=== PATIENT | female | born 1945 | race Caucasian/White ===

== ENCOUNTER 2017-03-22 21:11 | Emergency (ER) | payer OTHER ==
[~2017-03-22] VITALS: Ht 152.4 cm; Wt 75.5 kg
[2017-03-22] MEDS ORDERED: ACETAMINOPHEN 500 MG TAB PO STA (21:24)
[2017-03-22 21:36] VITALS: Ht 152.4 cm; Wt 75.5 kg
--- NOTE | 2017-03-22 21:50 | RADRPT ---
PROCEDURE: XR Chest. CLINICAL INDICATION: Trauma. Pain.. TECHNIQUE: Single frontal chest x-ray. COMPARISON: None. FINDINGS: Heart is mildly enlarged.. There is no congestive heart failure.. No focal infiltrate is seen. The re is no pleural effusion. There is no pneumothorax. Bones are osteopenic.. IMPRESSION: No acute post-traumatic abnormality. Cardiomegaly. RPTAT: HMVK .Eddie Stroud MD, MD Date Time Electronically viewed and signed by .Eddie Stroud MD, on 03/22/2017 21:49 .K/
--- NOTE | 2017-03-22 22:12 | RADRPT ---
AMENDMENT: 04/02/2017 11:18:48 PM Nikole Alcantar M.D One or more of the following dose reduction techniques were used: - Automated exposure control. - Adjustment of the mA and/or kV according to patient size. - Use of iterative reconstruction technique. Sagittal and coronal reformations were constructed. PROCEDURE: CT HEAD WITHOUT CONTRAST: CLINICAL INDICATION: 71 years of age, female, trauma . COMPARISON: None available. TECHNIQUE: CT of the head was performed without IV contrast. Sagittal and coronal reformations were constructed. Dose information: The estimated radiation dose (CTDI vol mGy) for each series in this exam is 41.7 . The estimated cumulative dose (DLP mGy-cm) is 630 . FINDINGS: Parenchyma: No acute intracranial hemorrhage, mass effect or significant midline shift. Mabry-white m atter differentiation is maintained. Mild diffuse cerebral tissue loss. Mild intracranial atheroscl erosis involving the cavernous carotid arteries. Ventricles and extra-axial spaces: Prominence of the ventricles proportionate to the sulci in keepin g with mild cerebral tissue loss that is appropriate for age. Visualized paranasal sinuses: Mild frothy mucus in right greater than left sphenoid sinuses. Mastoid air cells: Clear. Bones: Mild hyperostosis frontalis interna. Additional comment: None. IMPRESSION: 1. Negative for evidence of acute intracranial injury. Negative for evidence of acute intracranial hemorrhage or mass effect. 2. Mild intracranial atherosclerosis. RPTAT: HCTS Physician Sherley Date Time Electronically viewed and signed by Physician Sherley on 04/02/2017 23:19 /
--- NOTE | 2017-03-22 22:13 | RADRPT ---
PROCEDURE: XR Wrist and Scaphoid. CLINICAL INDICATION: 71 years of age, female. Trauma. TECHNIQUE: Four views of the left wrist and scaphoid. COMPARISON: None available. FINDINGS: Negative for evidence of acute fracture or dislocation. Normal alignment. Mild osteopenia. Osteoarthritis first CMC joint. Joint spaces are otherwise preserved. Negative for significant soft tissue swelling. IMPRESSION: 1. Negative for evidence of acute fracture or dislocation of the left wrist. 2. Please note that scaphoid fractures may be occult on initial radiographs. If there is snuffbox t enderness and clinical concern for a scaphoid fracture, recommend treatment and followup radiographs in 7-10 days. RPTAT: HCTS Physician Sherley Date Time Electronically viewed and signed by Physician Sherley on 03/22/2017 22:13 CS/
--- NOTE | 2017-03-22 22:16 | RADRPT ---
PROCEDURE: XR Hand. CLINICAL INDICATION: 71-year of age, female. Fall. TECHNIQUE: Three views of the right hand. COMPARISON: None available. FINDINGS: Negative for evidence of acute fracture. Please note that evaluation of the digits is limited on th e lateral view due to superimposition. Normal alignment. There is osteoarthritis of the CMC joint of the thumb and of the interphalangeal joint of the thumb and DIP of the 2nd finger. Joint spaces are otherwise preserved. There is a subchondral lucency in the proximal lunate that may represent an osteochondral lesion or geode. Negative for significant soft tissue swelling. IMPRESSION: Negative for evidence of acute fracture or dislocation of the right hand. Mild osteoarthritis as described. Lucency in proximal lunate likely represents a geode related to a rthritis or remote trauma. RPTAT: HCTS Physician Sherley Date Time Electronically viewed and signed by Physician Sherley on 03/22/2017 22:16 /
--- NOTE | 2017-03-22 22:23 | RADRPT ---
AMENDMENT: 04/03/2017 12:05:10 AM Nikole Alcantar M.D One or more of the following dose reduction techniques were used: - Automated exposure control. - Adjustment of the mA and/or kV according to patient size. - Use of iterative reconstruction technique. PROCEDURE: CT CERVICAL SPINE WITHOUT CONTRAST CLINICAL INDICATION: 71 years of age, female. Trauma. TECHNIQUE: A CT of the cervical spine was performed utilizing thin section axial images from the s [facility] base through the thoracic inlet. Sagittal and coronal reformatted images were made. The CTDI vol is 22.1 mGy and the DLP is 393 mGy-cm. COMPARISON: No prior studies are available for comparison. FINDINGS: Cervical spine is imaged from the skull base to T1 Alignment: Straightening of the normal cervical lordosis. Negative for subluxation. Vertebrae: Vertebral bodies and posterior elements are intact without acute fracture. Advanced right facet joint arthritis at C4-5. There is mild degenerative disk disease in lower cerv ical spine. Extra-vertebral soft tissues: Normal. Additional comment: None. IMPRESSION: Negative for evidence of acute fracture or traumatic subluxation of cervical spine. Advanced right facet joint arthritis at C4-5. Mild degenerative disk disease. RPTAT: HCTS Physician Sherley Date Time Electronically viewed and signed by Physician Sherley on 04/03/2017 00:06 /
[2017-03-22] MEDS ORDERED: ACET500C5 PO (23:07)
[2017-03-22 23:15] VITALS: BP 138/60; PULSE 72; RESP 18; TEMP 98
--- NOTE | 2017-03-22 23:16 | ERD ---
ER Documentation Chief Complaint Date/Time DATE: 03/22/17 TIME: 23:12 Chief Complaint BIBA [id number] c/o right shoulder,bilat wrist pain r/t fall HPI Very pleasant 71-year-old Tam[place]-speaking female. An mail teller was used. The patient presents with multiple complaints status post ground-level fall just prior to arrival. No prodrome of chest pain or shortness of breath. She describes paraspinal cervical neck pain, no significant head pain or loss of consciousness. Patient also describes mild abrasion just inferior to the left clavicle. She describes left wrist pain and right hand pain that is moderate throbbing and worse with movement. ROS All systems reviewed and are negative except as per history of present illness. Medications Home Meds Active Scripts Acetaminophen* (Tylophen*) 500 Mg Capsule, 2 CAP PO Q8H Y for PAIN AND OR ELEVATED TEMP, #20 CAP Prov:CHA FIGUEREDO MD 03/22/17 Allergies Allergies: Coded Allergies: No Known Allergy (Unverified , 03/22/17) PMhx/Soc History of Surgery: Yes (Laser Surgery for Kidney Stones) Anesthesia Reaction: No Hx Neurological Disorder: No Hx Respiratory Disorders: No Hx Cardiac Disorders: Yes (HTN) Hx Psychiatric Problems: No Hx Miscellaneous Medical Probl: Yes (DM) Hx Alcohol Use: No Hx Substance Use: No Hx Tobacco Use: No Smoking Status: Never smoker FmHx Family History: No diabetes Physical Exam Vitals Vital Signs Date Time Temp Pulse Resp B/P Pulse Ox O2 Delivery O2 Flow Rate FiO2 03/22/17 21:36 98.1 60 18 132/62 97 Physical Exam Airway is intact Bilateral breath sounds Strong distal pulses No obvious deficits General: Well developed, well nourished, no acute distress Head: Normocephalic, atraumatic Eyes: Pupils equally reactive, EOM intact ENT: Moist mucous membranes Neck: Supple, no lymphadenopathy, No midline tenderness, deformities, step-offs to the cervical spine, full active and passive range of motion without midline pain. Respiratory: Lungs clear bilaterally, no distress, no chest wall tenderness, no crepitus Cardiovascular: RRR, no murmurs, rubs, or gallops Abdominal: Soft, non-tender, non-distended, no peritoneal signs, pelvis is stable : Deferred MSK: Contusion noted to left wrist without snuffbox tenderness, normal pronation and supination. No bony abnormalities. 2+ radial ulnar pulses. 5 out of 5 hand grasp strength. Contusion noted to the thenar eminence of the right hand with positive snuffbox tenderness. No tenderness to the distal radius or ulna, 5 out of 5 hand grasp strength. Small abrasion and contusion noted to the left chest wall just under the left clavicle. No focal clavicle deformities or step-offs Neurologic: Alert and oriented, moving all extremities, normal speech, no focal weakness, no cerebellar signs Skin: No ecchymoses or bruising to the chest or abdomen Psych: Normal mood Results 24 hrs Current Medications Medications (Trade) Dose Ordered Sig/Mis Route PRN Reason Start Time Stop Time Status Last Admin Dose Admin Acetaminophen (Tylenol Tab) 1,000 mg ONCE STAT PO 03/22/17 21:24 03/22/17 21:25 DC 03/22/17 21:31 Procedures/MDM EKG, MONITORS, & DIAGNOSTIC IMAGING: CT brain: No evidence of acute intracranial process per radiologist CT cervical spine: No evidence of acute fracture dislocation per radiologist Chest x-ray: I reviewed and interpreted a 1 view of the chest Mediastinum: No enlargement Cardiac silhouette: No cardiomegaly Airspace: Clear lung neal bilaterally without evidence of pneumothorax Bones: No evidence of fracture X-ray left wrist: I reviewed and interpreted multiple views of the x-ray Bones: No evidence of acute fracture dislocation or subluxation Soft tissue: No evidence of foreign body X-ray right hand: I reviewed and interpreted multiple views of the x-ray Bones: No evidence of acute fracture dislocation or subluxation Soft tissue: No evidence of foreign body PROCEDURES: Splint Application Note: Splint type: Fabricated thumb spica Extremity: Right wrist Indication: Cannot rule out scaphoid fracture The patient was consented at bedside prior to splint application and states understanding of risks, benefits, and alternatives. The patient was neurovascularly intact prior to and status post application of the splint. The patient tolerated the procedure well and there were no complications. MEDICAL DECISION MAKING: Clear mechanical fall no evidence of syncope seizure or arrhythmia. The patient has multiple injuries including paracervical neck pain, bilateral wrist pain and small contusion to the left chest. I believe she would benefit from CT imaging of the head, cervical spine, bilateral wrists and chest. ER COURSE: X-ray imaging is negative. The patient's pain is improved. The patient was immobilized given positive snuffbox tenderness to the right wrist. Outpatient follow-up through [place] was recommended. Return precautions discussed and understood. Again, no evidence of syncope. I kept the patient and/or family informed of laboratory and diagnostic imaging results throughout the emergency room course. DISPOSITION PLAN: We discussed follow up with the patient's primary care doctor within 24 to 48 hours as needed. We also discussed return to the emergency room for worsening symptoms or worsening condition. Outpatient referral: Orthopedic surgery Discharge Medications: Tylenol Departure Diagnosis: Primary Impression: Fall with no significant injury Encounter type: initial encounter Qualified Code: W19.XXXA - Fall with no significant injury, initial encounter Additional Impressions: Contusion of wrist, right Contusion of left wrist Encounter type: initial encounter Qualified Code: S60.212A - Contusion of left wrist, initial encounter Condition: Good Patient Instructions: Contusion, Hand, Fall Prevention Referrals: [facility] Usted se ontiveros hecho un examen mdico de control que le indica que no est en markos condicin que requiera tratamiento urgente en el Departamento de Emergencia. Un estudio ms profundo y el tratamiento de valerio condicin pueden esperar sin ningn riesgo hasta que usted sea atendida/o en el consultorio de valerio mdico o markos cl paty. Es responsabilidad suya arreglar markos allison para el seguimiento del nikkie. MANEJO DE CONDICIONES NO URGENTES EN EL FUTURO 1) Si usted tiene un mdico de atencin primaria: Usted debera llamar a valerio mdico de atencin primaria antes de venir al departamento de emergencia. Despus de las horas de consultorio, valerio doctor o valerio asociado/a est disponible por telfono. El mdico o enfermero de jalil en el servicio telefnico puede asesorarle por maggie medio para atender el problema, o nikkie contrario se puede programar markos allison. 2) Si usted no tiene un mdico de atencin primaria: Llame al mdico o clnica de referencia que aparece abajo phil las horas de consultorio para hacer markos allison para que le vean. CLINICAS: [facility] [phone] [facility] [phone] [facility] [phone] [place] [address] [phone] [place] [address] [phone] [facility] [phone] [address] [facility]. [facility] () Usted se ontiveros hecho un examen mdico de control que le indica que no est en markos condicin que requiera tratamiento urgente en el Departamento de Emergencia. Un estudio ms profundo y el tratamiento de valerio condicin pueden esperar sin ningn riesgo hasta que usted sea atendida/o en el consultorio de valerio mdico o markos cl paty. Es responsabilidad suya arreglar markos allison para el seguimiento del nikkie. MANEJO DE CONDICIONES NO URGENTES EN EL FUTURO 1) Si usted tiene un mdico de atencin primaria: Usted debera llamar a valerio mdico de atencin primaria antes de venir al departamento de emergencia. Despus de las horas de consultorio, valerio doctor o valerio asociado/a est disponible por telfono. El mdico o enfermero de jalil en el servicio telefnico puede asesorarle por maggie medio para atender el problema, o nikkie contrario se puede programar markos allison. 2) Si usted no tiene un mdico de atencin primaria: Llame al mdico o condado institucions de referencia que aparece abajo phil las horas de consultorio para hacer markos allison para que le vean. SI USTED NO PUEDE PAGAR PARA LOUANN UN MEDICO puede ir a: [facility] [address] [place] [address] [facility] [address] [place] [address] [facility] [address] [place] [address] [facility] [address] [place] [address] [facility] Ur[facility] Care 7 a.m.- 11 p.m. Every Day of the Week NO APPOINTMENT OR AUTHORIZATION NEEDED [facility] Hours: Mon-Fri 9:00 AM - 5:00 PM Additional Instructions: Llame al doctor nombrado abajo (Referral Sources) MAANA y catie markos ALLISON PARA DENTRO DE MARKOS SEMANA. Dgale a la secretaria que nosotros le instruimos hacer esta allison.Avise o llame si valerio condicin se empeora antes de la allison. CHA FIGUEREDO MD Mar 22, 2017 23:16
[2017-03-23] MEDS ORDERED: METF500T4 PO (00:06)
[2017-03-23] MEDS ORDERED: LISI-313 PO (00:06)
[2017-03-23] MEDS ORDERED: CHOL100062 PO (00:11)
[2017-03-23] MEDS ORDERED: NADO20TA10 PO (00:11)
[2017-03-23] MEDS ORDERED: ATOR10TA65 PO (00:11)
[2017-03-23] MEDS ORDERED: ASPI-664 PO (00:11)
== END 2017-03-22 23:15 | disposition home or self-care (01) ==
LOC: E/R 21:11
DX: S60.212A Contusion of left wrist, initial encounter (principal); E11.9 Type 2 diabetes mellitus without complications; I10 Essential (primary) hypertension; W18.39XA Other fall on same level, initial encounter; Y92.9 Unspecified place or not applicable
CPT/HCPCS: 70450; 71010; 72125